=== PATIENT | male | born 1970 | race American Indian/Alaskan Native ===

== ENCOUNTER 2017-08-05 15:31 | Emergency (ER) | payer SELFPAY ==
[2017-08-05] MEDS ORDERED: PROVENTIL IH ONE ×2 (16:30→16:51)
[2017-08-05] MEDS ORDERED: TORADOL ONE (16:30)
[2017-08-05] MEDS ORDERED: ZOFRAN ONE (16:32)
[2017-08-05] MEDS ORDERED: TORADOL IM ONE (16:51)
[2017-08-05] MEDS ORDERED: ZOFRAN IM ONE (16:51)
--- NOTE | 2017-08-05 17:50 | XRay Report ---
FINAL REPORT PROCEDURE: XR CHEST ROUTINE 2V TECHNIQUE: PA and lateral chest radiographs were obtained. CPT 88303 HISTORY: cough COMPARISON: No prior studies are available for comparison. FINDINGS: Heart: Normal. Mediastinum/Vessels: Normal. Lungs/Pleural space: No infiltrate, effusion, or pneumothorax. Bony thorax: No acute osseous abnormality. Other: IMPRESSION: No pulmonary infiltrates are identified.
[2017-08-05] MEDS ORDERED: MOTRIN PO ONE (21:37)
[2017-08-05] MEDS ORDERED: FLEXERIL PO ONE (21:37)
--- NOTE | 2017-08-05 21:48 | Emergency Department Report ---
Minor Respiratory - HPI Chief Complaint: Upper Respiratory Infection Stated Complaint: FLU SYMPTOMS/SANDY/CHEST PAIN Time Seen by Provider: 08/05/17 21:16 Duration: 5 Days Pain Location: Ear Severity: moderate Minor Respiratory: Yes Sore Throat, Yes Able to Tolerate Fluids, Yes Ear Pain, Yes Cough, No Rhinorrhea, No Sick Contacts, No Hemoptysis, No Chest Pain, No Shortness of Breath, No Fever Other History: 46-year-old male with no prior medical history presents to ED complaining of cough but he takes 1 week. Patient states he's been taking Tylenol and Goody powder that gives him some relief but symptoms are not going away. Patient states he had fevers for the first few days until she resolved now. Patient states cough as productive greenish sputum. He denies fever/ chills/nausea/vomiting/abdominal pain/chest pain/shortness of breath ED Review of Systems ROS: Stated complaint: FLU SYMPTOMS/SANDY/CHEST PAIN Other details as noted in HPI Constitutional: denies: chills, fever Eyes: denies: eye pain, eye discharge, vision change ENT: congestion. denies: ear pain, throat pain Respiratory: cough (greenish productive). denies: shortness of breath, wheezing Cardiovascular: denies: chest pain, palpitations Endocrine: no symptoms reported Gastrointestinal: denies: abdominal pain, nausea, vomiting, diarrhea Genitourinary: denies: urgency, dysuria Musculoskeletal: denies: back pain, joint swelling, arthralgia Skin: denies: rash, lesions Neurological: denies: headache, weakness, paresthesias Psychiatric: denies: anxiety, depression Hematological/Lymphatic: denies: easy bleeding, easy bruising ED Past Medical Hx - Past Medical History Previous Medical History?: No Additional medical history: Bronchitis - Surgical History Past Surgical History?: No - Social History Smoking Status: Current Every Day Smoker Substance Use Type: None - Medications Home Medications: Home Medications Medication Instructions Recorded Confirmed Last Taken Type Amoxicillin/K Clav Tab [Augmentin 1 tab PO Q12HR #14 tab 08/05/17 Unknown Rx 875 mg] Ibuprofen [Motrin 800 MG tab] 800 mg PO TID #30 tablet 08/05/17 Unknown Rx Minor Respiratory Exam - Exam General: Vital signs noted. No distress. Alert and acting appropriately. HEENT: Yes Moist Mucous Membranes, No Pharyngeal Erythema, No Pharyngeal Exudates, No Rhinorrhea, No Conjuctival Injection, No Frontal Tenderness, No Maxillary Tenderness Ear: Neither TM Bulge, Neither TM Erythema, Neither EAC Pain, Neither EAC Discharge Neck: Yes Supple, No Adenopathy Lungs: Yes Good Air Exchange, No Wheezes, No Ronchi, No Stridor, No Cough, No Labored Respirations, No Retractions, No Use of Accessory Muscles, No Other Abnormal Lung Sounds Heart: Yes Regular, No Murmur Abdomen: Yes Normal Bowel Sounds, No Tenderness, No Peritoneal Signs Skin: No Rash, No Edema Neurologic: Alert and oriented, no deficits. Musculoskeletal: Unremarkable. ED Course Vital Signs 08/05/17 16:27 Temperature 98 F Pulse Rate 102 H Respiratory 18 Rate Blood Pressure 124/79 O2 Sat by Pulse 100 Oximetry ED Medical Decision Making - Radiology Data Radiology results: report reviewed, image reviewed FINAL REPORT PROCEDURE: XR CHEST ROUTINE 2V TECHNIQUE: PA and lateral chest radiographs were obtained. CPT 40879 HISTORY: cough COMPARISON: No prior studies are available for comparison. FINDINGS: Heart: Normal. Mediastinum/Vessels: Normal. Lungs/Pleural space: No infiltrate, effusion, or pneumothorax. Bony thorax: No acute osseous abnormality. Other: IMPRESSION: No pulmonary infiltrates are identified. Transcribed By: [facility] Dictated By: CRISTIAN CLEVELAND M.D. Electronically Authenticated By: CRISTIAN CLEVELAND M.D. Signed Date/Time: 08/05/17 1471 - Medical Decision Making 46-year-old male presents with Sinusitis/URI. Fever resolved no fever during the ED stay. Chest x-ray shows no abnormalities. Rapid flu influenza A and B negative. I discussed with patient and the results and findings. Patient received Toradol, Flexeril, Motrin, Zofran and a breathing treatment in ED. Discussed with patient symptomatic relief with [id number] medications. Discussed continue Motrin as needed for fever and pain. Discussed increase fluids and diet intake. Discussed rest much needed. Discussed daily vitamin C for immune booster. Discussed follow-up with donor relations manager in 3-5 days. Patient verbally states he understands and will comply the following instructions and follow-up Vital signs stable. Patient is in no acute distress Critical care attestation.: If time is entered above; I have spent that time in minutes in the direct care of this critically ill patient, excluding procedure time. ED Disposition Clinical Impression: URI (upper respiratory infection) Qualifiers: URI type: unspecified URI Qualified Code(s): J06.9 - Acute upper respiratory infection, unspecified Sinusitis, acute Qualifiers: Sinusitis location: maxillary Recurrence: non-recurrent Qualified Code(s): J01.00 - Acute maxillary sinusitis, unspecified Disposition: TO HOME OR SELFCARE Is pt being admited?: No Does the pt Need Aspirin: No Condition: Stable Instructions: Viral Syndrome (ED), Upper Respiratory Infection (ED), Acute Bacterial Rhinosinusitis (ED) Additional Instructions: Make sure to follow up with the primary care physician as discussed. Take all your medications as you've been prescribed. If you have any worsening symptoms or develop new symptoms please return to ED immediately. Prescriptions: Amoxicillin/K Clav Tab [Augmentin 875 mg] 1 tab PO Q12HR #14 tab Ibuprofen [Motrin 800 MG tab] 800 mg PO TID #30 tablet Referrals: CLAU CADENA MD [Primary Care Provider] - 3-5 Days [facility] [Outside] - 3-5 Days [facility] [Outside] - 3-5 Days [facility] [Outside] - 3-5 Days Forms: Accompanied Note, Work/School Release Form(ED) Time of Disposition: 22:05
[2017-08-05 22:12] VITALS: BP 113/85
== END 2017-08-05 22:38 | disposition home or self-care (01) ==
LOC: ED 15:31
DX: J06.9 Acute upper respiratory infection, unspecified (principal); J01.90 Acute sinusitis, unspecified; F17.200 Nicotine dependence, unspecified, uncomplicated
CPT/HCPCS: 71046; 87400; 93005; 93010; 96372; 99283; J1885; J2405

== ENCOUNTER 2020-06-21 06:35 | Emergency (ER) | payer SELFPAY ==
[2020-06-21] MEDS ORDERED: ACETAMINOPHEN 500 MG TAB PO ONE (10:33)
[2020-06-21] MEDS ORDERED: BENZONATATE 100 MG CAP PO ONE (10:33)
--- NOTE | 2020-06-21 11:05 | XRay Report ---
CHEST 2 VIEWS INDICATION / CLINICAL INFORMATION: cough. COMPARISON: 08/05/2017 FINDINGS: SUPPORT DEVICES: None. HEART / MEDIASTINUM: Stable. LUNGS / PLEURA: No significant pulmonary or pleural abnormality. No pneumothorax. ADDITIONAL FINDINGS: No significant additional findings. IMPRESSION: 1. No acute findings. No significant interval change. Signer Name: Lew Mcgrath MD Signed: 06/21/2020 11:01 AM Workstation Name: [id number]
--- NOTE | 2020-06-21 11:52 | Emergency Department Report ---
Upper Respiratory HPI - HPI Chief Complaint: Upper Respiratory Infection Stated Complaint: FLU SX/WEAKNESS/SANDY Time Seen by Provider: 06/21/20 10:33 Duration: 5 Days URI Symptoms: Rhinorrhea: Yes, Sore Throat: No, Ear Pain: No, Cough: Yes, Shortness of Breath: No, Sick Contacts: No, Unable to Take Fluids: No, Urine Output Abnormal: No, Listless Behavior: No Other History: This is a 49-year-old female nontoxic, well nourished in appearance, no acute signs of distress presents to the ED with c/o of nonproductive cough, body aches, rhinorrhea, nasal congestion x5 days. Pt denies any sick contacts. Patient denies any recent travels, long car, recent hospital stays. Patient denies any calf pain or calf tenderness. Patient denies any chest pain, short of breath, fever, chills, nausea, vomiting, hemoptysis, numbness, tingling, headache or stiff neck. Denies any allergies or PMH. - Home Meds and Allergies Home Medications: Previous Rx's Medication Instructions Recorded Last Taken Type Amoxicillin/K Clav Tab [Augmentin 1 tab PO Q12HR #14 tab 08/05/17 Unknown Rx 875 mg] Ibuprofen [Motrin 800 MG tab] 800 mg PO TID #30 tablet 08/05/17 Unknown Rx Benzonatate [Tessalon Perles] 100 mg PO Q8HR PRN #12 capsule 06/21/20 Unknown Rx Allergies/Adverse Reactions: Allergies Allergy/AdvReac Type Severity Reaction Status Date / Time No Known Allergies Allergy Unverified 08/05/17 16:50 ED Review of Systems ROS: Stated complaint: FLU SX/WEAKNESS/SANDY Other details as noted in HPI Constitutional: denies: chills, fever Eyes: denies: eye pain, eye discharge, vision change ENT: congestion. denies: ear pain, throat pain Respiratory: cough. denies: shortness of breath, wheezing Cardiovascular: denies: chest pain, palpitations Endocrine: no symptoms reported Gastrointestinal: denies: abdominal pain, nausea, diarrhea Genitourinary: denies: urgency, dysuria Musculoskeletal: denies: back pain, joint swelling, arthralgia Skin: denies: rash, lesions Neurological: denies: headache, weakness, paresthesias Psychiatric: denies: anxiety, depression Hematological/Lymphatic: denies: easy bleeding, easy bruising ED Past Medical Hx - Past Medical History Previous Medical History?: Yes Additional medical history: Bronchitis - Surgical History Past Surgical History?: No - Social History Smoking Status: Current Every Day Smoker Substance Use Type: Alcohol - Medications Home Medications: Home Medications Medication Instructions Recorded Confirmed Last Taken Type Amoxicillin/K Clav Tab [Augmentin 1 tab PO Q12HR #14 tab 08/05/17 Unknown Rx 875 mg] Ibuprofen [Motrin 800 MG tab] 800 mg PO TID #30 tablet 08/05/17 Unknown Rx Benzonatate [Tessalon Perles] 100 mg PO Q8HR PRN #12 capsule 06/21/20 Unknown Rx ED Bronchiolitis Physical Exam - Exam General: Vital signs noted. No distress. Alert and acting appropriately. Neurologic: Alert and oriented, no deficits. Musculoskeletal: Unremarkable. ED Bronchiolitis Tests - Testing Testing: CXR: Normal/Negative ED Physical Exam - General Limitations: No Limitations General appearance: alert, in no apparent distress - Head Head exam: Present: atraumatic, normocephalic - Eye Eye exam: Present: normal appearance - Neck Neck exam: Present: normal inspection, full ROM. Absent: tenderness, meningismus, lymphadenopathy - Respiratory Respiratory exam: Present: normal lung sounds bilaterally. Absent: respiratory distress, wheezes, rales, rhonchi, stridor, chest wall tenderness, accessory mu scle use, decreased breath sounds, prolonged expiratory - Cardiovascular Cardiovascular Exam: Present: regular rate, normal rhythm, normal heart sounds. Absent: bradycardia, tachycardia, irregular rhythm, systolic murmur, diastolic murmur, rubs, gallop - Extremities Exam Extremities exam: Present: full ROM - Back Exam Back exam: Present: normal inspection, full ROM - Neurological Exam Neurological exam: Present: alert, oriented X3, normal gait - Psychiatric Psychiatric exam: Present: normal affect, normal mood - Skin Skin exam: Present: warm, dry, intact, normal color. Absent: rash ED Course Vital Signs 06/21/20 06/21/20 07:38 11:09 Temperature 99.1 F Pulse Rate 92 H Respiratory 20 18 Rate Blood Pressure 126/86 O2 Sat by Pulse 99 Oximetry Vital Signs 06/21/20 06/21/20 06/21/20 07:38 11:09 12:21 Temperature 99.1 F Pulse Rate 92 H 88 Respiratory 20 18 20 Rate Blood Pressure 126/86 Blood Pressure 122/82 [Left] O2 Sat by Pulse 99 97 Oximetry - Reevaluation(s) Reevaluation #1: 06/21/20 11:48 Patient is speaking in full sentences with no signs of distress noted. ED Medical Decision Making - Radiology Data Referring Physician: ELKE HOLLINS Patient Name: ASHOK FOUNTAIN Date of : 1970 Sex: Male Report Date: 2020-06-21 Report Status: Finalized [facility] [address] [place] [address] XRay Report Signed Patient: ASHOK FOUNTAIN MR#: [id number] : 1970 Acct:[id number] Age/Sex: 49 / M ADM Date: 06/21/20 Loc: ED Attending Dr: Ordering Physician: ELKE HOLLINS NP Date of Service: 06/21/20 Procedure(s): XR chest routine 2V Accession Number(s): [id number] cc: ELKE HOLLINS NP Fluoro Time In Minutes: CHEST 2 VIEWS INDICATION / CLINICAL INFORMATION: cough. COMPARISON: 08/05/2017 FINDINGS: SUPPORT DEVICES: None. HEART / MEDIASTINUM: Stable. LUNGS / PLEURA: No significant pulmonary or pleural abnormality. No pneumothorax. ADDITIONAL FINDINGS: No significant additional findings. IMPRESSION: 1. No acute findings. No significant interval change. Signer Name: Lew Linda MD Signed: 06/21/2020 11:01 AM Workstation Name: [id number] Transcribed By: Dictated By: LEW LINDA Electronically Authenticated By: LEW LINDA Signed Date/Time: 06/21/20 1101 DD/ 1100 TD/TT: - Medical Decision Making This is a 49-year-old male that presents with suspoected covid. Patient is stable and was examined by me. Chest x-ray has been obtained and dictated by radiologist with normal exam. Patient is notified of x-ray results with no questions noted. Patient was instructed and educated on signs and symptoms and to self quarantine and seek medical attention as soon as possible if symptoms does occur of COVID. Patient was instructed to increase hydration, rest and take Tylenol for fever episodes. Patient received Tylenol and tesslone perrls in the ED. Vitals stable. Patient is nonfebrile and normal heart rate. Patient was instructed Follow-up with a primary care doctor in 3-5 days or if symptoms worsen and continue return to emergency room as soon as possible. At time time of discharge, the patient does not seem toxic or ill in appearance. No acute signs of distress noted. Patient agrees to discharge treatment plan of care. No further questions noted by the patient.nt. Critical care attestation.: If time is entered above; I have spent that time in minutes in the direct care of this critically ill patient, excluding procedure time. ED Disposition Clinical Impression: Suspected COVID-19 virus infection Disposition: TO HOME OR SELFCARE Is pt being admited?: No Does the pt Need Aspirin: No Condition: Stable Instructions: COVID-19 Frequently Asked Questions Additional Instructions: Follow-up with a primary care doctor in 3-5 days or if symptoms worsen and continue return to emergency room as soon as possible. As educated and instructed to you must self quarantine yourself and people that you have been in close contact with similar symptoms for the next 14 days. Please see your nearest health department or primary care doctor that you are referred to for COVID testing. Increased rest, hydration, and take Tylenol as prescribed for fever episode. Prescriptions: Benzonatate [Tessalon Perles] 100 mg PO Q8HR PRN #12 capsule PRN Reason: Cough Referrals: RYAN CHARLES MD [Primary Care Provider] - 3-5 Days BURAK JONES MD [Staff Physician] - 3-5 Days Forms: Work/School Release Form(ED)
[2020-06-21 12:22] VITALS: BP 122/82
== END 2020-06-21 12:21 | disposition home or self-care (01) ==
LOC: ED 06:35
DX: F17.200 Nicotine dependence, unspecified, uncomplicated (principal); Z20.828 Contact with and (suspected) exposure to other viral communicable diseases; Z79.899 Other long term (current) drug therapy
CPT/HCPCS: 71046